=== PATIENT | male | born 2000 | race African-American/Black ===

== ENCOUNTER 2019-06-11 15:09 | Emergency (ER) | payer SELFPAY ==
--- NOTE | 2019-06-11 15:23 | EDM.PDOC ---
ED HPI GENERAL MEDICAL PROBLEM - General Chief Complaint: Abdominal Pain Stated Complaint: INSOMNIA, STOMACH ISSUES Time Seen by Provider: 06/11/19 15:23 - History of Present Illness INITIAL COMMENTS - FREE TEXT/NARRATIVE: 18-year-old male presents the emergency room with abdominal pain. This is been going on for several weeks. He has decreased appetite occasional nausea occasional vomiting and rare diarrhea. Patient has no prior history of abdominal surgeries or other abdominal problems. He has not had meaningful bowel movement in a while. He denies fevers or chills no cough or congestion. He denies underlying medical issues. Patient also complains of insomnia he has had difficulty sleeping for about the last month. I have recommended that he follow-up with primary care provider to discuss and manage this issue he agrees to this. 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 [No Known Home Meds] 06/11/19 [History] Past Medical History - Past Health History Medical/Surgical History: Denies Medical/Surgical History ED ROS GENERAL - Review of Systems Review Of Systems: See Below Constitutional: Reports: No Symptoms HEENT: Reports: No Symptoms Respiratory: Reports: No Symptoms Cardiovascular: Reports: No Symptoms GI/Abdominal: Reports: Abdominal Pain, Constipation (Possible), Diarrhea ( small amounts), Decreased Appetite, Nausea, Vomiting. Denies: Difficulty Swallowing, Distension, Flatus, Hematemesis, Hematochezia : Reports: No Symptoms Musculoskeletal: Reports: No Symptoms Skin: Reports: No Symptoms Neurological: Reports: No Symptoms ED EXAM, GI/ABD - Physical Exam Exam: See Below Exam Limited By: No Limitations General Appearance: Alert, No Apparent Distress Head: Atraumatic, Normocephalic Neck: Normal Inspection, Supple, Non-Tender, Full Range of Motion Respiratory/Chest: No Respiratory Distress, Lungs Clear, Normal Breath Sounds Cardiovascular: Regular Rate, Rhythm, No Edema, No Murmur GI/Abdominal Exam: Normal Bowel Sounds, Soft, Non-Tender, Other (Mild Distention ). No: Guarding, Rigid, Rebound Back Exam: Normal Inspection. No: CVA Tenderness (L), CVA Tenderness (R) Extremities: Normal Inspection, No Pedal Edema Neurological: Alert, Oriented, Normal Cognition Course - Vital Signs Last Recorded V/S: Last Vital Signs Temp 37.1 C 06/11/19 15:23 Pulse 65 06/11/19 15:23 Resp 20 06/11/19 15:23 BP 122/73 06/11/19 15:23 Pulse Ox 96 06/11/19 15:23 - Orders/Labs/Meds Labs: Laboratory Tests 06/11/19 06/11/19 06/11/19 Range/Units 15:45 15:45 16:05 WBC 12.31 H (4.23-9.07) K/mm3 RBC 5.20 (4.63-6.08) M/mm3 Hgb 14.5 (13.7-17.5) gm/dl Hct 44.0 (40.1-51.0) % MCV 84.6 (79.0-92.2) fl MCH 27.9 (25.7-32.2) pg MCHC 33.0 (32.2-35.5) g/dl RDW Std Deviation 42.8 (35.1-43.9) fL Plt Count 244 (163-337) K/mm3 MPV 8.9 L (9.4-12.3) fl Neut % (Auto) 75.5 H (34.0-67.9) % Lymph % (Auto) 19.0 L (21.8-53.1) % Bland % (Auto) 5.0 L (5.3-12.2) % Eos % (Auto) 0.2 L (0.8-7.0) Baso % (Auto) 0.1 (0.1-1.2) % Neut # (Auto) 9.29 H (1.78-5.38) K/mm3 Lymph # (Auto) 2.34 (1.32-3.57) K/mm3 Bland # (Auto) 0.62 (0.30-0.82) K/mm3 Eos # (Auto) 0.02 L (0.04-0.54) K/mm3 Baso # (Auto) 0.01 (0.01-0.08) K/mm3 Manual Slide Review Normal smear Sodium 139 (136-145) mEq/L Potassium 3.8 (3.5-5.1) mEq/L Chloride 104 (98-107) mEq/L Carbon Dioxide 24 (21-32) mEq/L Anion Gap 14.8 (5-15) BUN 14 (7-18) mg/dL Creatinine 0.9 (0.7-1.3) mg/dL Est Cr Clr Drug Dosing 147.96 mL/min Estimated GFR (MDRD) > 60 (>60) mL/min BUN/Creatinine Ratio 15.6 (14-18) Glucose 109 H (74-106) mg/dL Calcium 9.2 (8.5-10.1) mg/dL Total Bilirubin 0.6 (0.2-1.0) mg/dL AST 14 L (15-37) U/L ALT 19 (16-63) U/L Alkaline Phosphatase 80 (46-116) U/L Total Protein 7.3 (6.4-8.2) g/dl Albumin 4.0 (3.4-5.0) g/dl Globulin 3.3 gm/dL Albumin/Globulin Ratio 1.2 (1-2) Lipase 56 L (73-393) U/L Urine Color Yellow (Yellow) Urine Appearance Clear (Clear) Urine pH 7.0 (5.0-8.0) Ur Specific [place] > or = 1.030 (1.005-1.030) Urine Protein Trace H (Negative) Urine Glucose (UA) Negative (Negative) Urine Ketones Trace H (Negative) Urine Occult Blood Negative (Negative) Urine Nitrite Negative (Negative) Urine Bilirubin Negative (Negative) Urine Urobilinogen 1.0 (0.2-1.0) Ur Leukocyte Esterase Negative (Negative) Urine RBC 0-5 (0-5) /hpf Urine WBC 0-5 (0-5) /hpf Ur Squamous Epith Cells 0-5 (0-5) /hpf Urine Bacteria Few (FEW) /hpf Urine Mucus Few (FEW) /hpf - Re-Assessments/Exams Free Text/Narrative Re-Assessment/Exam: 06/11/19 17:56 Laboratory evaluation is for the most part unrevealing abdominal x-rays are unrevealing. I recommend he start out with a fairly easy diet such as soups and broths and then slowly advance. Avoid junk food. He does work at [employer] and this makes up the majority of his diet. Departure - Departure Time of Disposition: 17:57 Disposition: Home, Self-Care 01 Clinical Impression: Nausea and vomiting - Discharge Information Referrals: PCP,None [Primary Care Provider] - Forms: ED Department Discharge, ED Return to Work/School Form Additional Instructions: Emergency room with any questions problems or worsening symptoms. Follow-up in the hospital clinic early this next week for recheck [phone]. Start out with a mostly clear diet with soups and broths like we discussed and then slowly advance as tolerated. Avoid junk food. Sepsis Event Note - Focused Exam Vital Signs: Vital Signs Temp Pulse Resp BP Pulse Ox 06/11/19 15:23 37.1 C 65 20 122/73 96 Date Exam was Performed: 06/11/19 Time Exam was Performed: 17:56
--- NOTE | 2019-06-11 15:52 | CR ---
Abdomen: Supine and upright views of the abdomen were obtained. Bowel gas pattern is normal. No free air is seen. Bony structures are unremarkable. No abnormal calcifications or soft tissue abnormality is appreciated. Impression: 1. Nothing acute is appreciated on 2 view abdominal x-ray. Diagnostic code #1 This report was dictated in MDT
== END 2019-06-11 18:09 | disposition home or self-care (01) ==
LOC: JD.ED 15:09
DX: R11.2 Nausea with vomiting, unspecified (principal)
CPT/HCPCS: 36415; 74019; 74019-26; 80053; 81001; 83690; 85025; 99282; 99284-25

== ENCOUNTER 2023-11-30 12:47 | Emergency (ER) | payer SELFPAY ==
[2023-11-30] MEDS: cefTRIAXone 2 GM, Lidocaine 1% 4.2 ML IM ONE (13:39)
[2023-11-30] MEDS: Sulfamethoxazole/Trimethoprim 800-160 MG Tab PO STA (13:41)
[2023-11-30] MEDS: Ketorolac 60 MG/2 ML SDV IM ONE (13:53)
== END 2023-11-30 13:57 | disposition home or self-care (01) ==
LOC: JD.ED 12:47
DX: L02.214 Cutaneous abscess of groin (principal); Z79.899 Other long term (current) drug therapy
CPT/HCPCS: 96372; 99283; A9270; J0696; J1885; J3490

== ENCOUNTER 2024-08-19 04:35 | Emergency (ER) | payer BC ==
[2024-08-19] MEDS: Ketorolac 30 MG/ML SDV IM ONE (05:08)
== END 2024-08-19 05:15 | disposition home or self-care (01) ==
LOC: JD.ED 04:35
DX: K02.9 Dental caries, unspecified (principal); E11.9 Type 2 diabetes mellitus without complications; F17.210 Nicotine dependence, cigarettes, uncomplicated; Z79.84 Long term (current) use of oral hypoglycemic drugs; Z79.899 Other long term (current) drug therapy
CPT/HCPCS: 96372; 99282; J1885; 99283